=== PATIENT | male | born 1940 | race Two or more races ===

== ENCOUNTER → 2019-02-04 | Outpatient (CLI) | payer MEDICARE ==
--- NOTE | 2019-02-04 09:49 | RADIOLOGY REPORT (SQ) ---
EXAM DESCRIPTION: U/S RETROPERITON (RENAL/AORTA) COMPLETED DATE/TIME: 02/04/2019 9:09 am REASON FOR STUDY: CKD STAGE 2 N18.2 CHRONIC KIDNEY DISEASE, STAGE 2 (MILD) COMPARISON: None. TECHNIQUE: Dynamic and static grayscale images acquired of the kidneys and bladder and recorded on P ACS. Additional selected color Doppler and spectral images recorded. LIMITATIONS: 03/19/2015 FINDINGS: RIGHT KIDNEY: Normal size measuring 11.9 cm. Increased cortical echogenicity. No solid or suspicious masses. Interpolar cyst measuring up to 4.7 cm lower pole cyst measuring up to 3.1 cm. No hydronephrosis. No calcifications. LEFT KIDNEY: Normal size measuring 10.4 cm. Increased cortical echogenicity. No solid or suspicious masses. Multiple cysts, largest measuring up to 2.9 cm. No hydronephrosis. No calcifications. BLADDER: Decompressed. OTHER FINDINGS: No other significant finding. IMPRESSION: 1. No hydronephrosis. 2. Bilateral renal cysts as above. 3. Increased renal cortical echogenicity which can be seen with medical renal disease. TECHNICAL DOCUMENTATION: JOB ID: [id number] [employer]- All Rights Reserved Reading location - IP/workstation name: [email or web address]
== END ==
LOC: RAD 08:29
PROVIDERS: ATTEND Family Medicine
DX: N18.2 Chronic kidney disease, stage 2 (mild) (principal); Q61.02 Congenital multiple renal cysts
CPT/HCPCS: 76770

== ENCOUNTER 2019-06-08 00:12 | Emergency (ER) | payer MEDICARE, OTHER ==
--- NOTE | 2019-06-08 03:58 | RADIOLOGY REPORT (SQ) ---
CLINICAL HISTORY: pain/injury COMPARISON: None. 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 There is a large knee effusion. There is severe narrowing of the lateral knee compartment. Soft tissues are unremarkable. IMPRESSION: No acute osseous findings.
[2019-06-08] MEDS ORDERED: HYDROCODONE/ACETAMINOPHEN 5-325 MG (6 TAB/ER DISP) PO PRN (04:09)
[2019-06-08] MEDS ORDERED: PREDNISONE 20 MG TABLET PO ONE (04:09)
--- NOTE | 2019-06-08 04:14 | ER Document Report ---
HPI - HPI Time Seen by Provider: 06/08/19 03:57 Pain Level: 4 Context: Patient is a 79-year-old male that comes emergency department for chief complaint of 3 days of right knee pain and swelling. He states that he does have a history of gout but he usually gets it in his ankles and feet. He states that this did start after he ate meals with topical beef. He denies fever, injury. He states that he has a history of type 2 diabetes and he does have a history of chronic kidney disease. He denies any other complaints. He states he is able to walk but it is painful. - CONSTITUTIONAL Constitutional: DENIES: Fever, Chills - REPRODUCTIVE Reproductive: DENIES: : - MUSCULOSKELETAL Musculoskeletal: REPORTS: Extremity pain Past Medical History - General Information source: Patient - Social History Smoking Status: Former Smoker Chew tobacco use (# tins/day): No Frequency of alcohol use: None Drug Abuse: None Lives with: Family Family History: Reviewed & Not Pertinent Patient has suicidal ideation: No Patient has homicidal ideation: No - Past Medical History Cardiac Medical History: Reports: Hx Hypercholesterolemia Endocrine Medical History: Reports: Hx Diabetes Mellitus Type 2 - borderline Renal/ Medical History: Reports: Hx Benign Prostatic Hyperplasia Past Surgical History: Reports: Hx Cholecystectomy, Hx Urinary Tract Surgery - Prostate biopsy - Immunizations Hx Diphtheria, Pertussis, Tetanus Vaccination: Yes Vertical Provider Document - CONSTITUTIONAL General Appearance: WD/WN, No Apparent Distress - Patient moves with pain but otherwise is not in distress - INFECTION CONTROL TRAVEL OUTSIDE OF THE [place] IN LAST 30 DAYS: No - HEENT HEENT: Atraumatic, Normal ENT Exam, Normocephalic - NECK Neck: Normal Inspection - RESPIRATORY Respiratory: Breath Sounds Normal, No Respiratory Distress - CARDIOVASCULAR Cardiovascular: Regular Rate, Regular Rhythm - GI/ABDOMEN Gastrointestinal: Abdomen Soft, Abdomen Non-Tender. negative: Abdomen Tender - BACK Back: Normal Inspection - MUSCULOSKELETAL/EXTREMETIES Musculoskeletal/Extremeties: MAEW, FROM, Tender - Right anterior knee with some soft tissue swelling and warmth, questionable borderline erythema. Range of motion intact. Patient able to ambulate but with some pain. Normal distal neurovascular exam, normal leg, hip, lower extremity exam otherwise. Course - Re-evaluation Re-evalutation: X-ray is normal. Vital signs unremarkable. Patient is well-appearing but does ambulate with pain. He has normal range of motion of the right knee but the area over the anterior knee is warm, has some swelling, but there is no overt erythema. Patient does have a history of gout and overall presentation is very suggestive of gout. Based on his good range of motion and reassuring exam I have a low suspicion of septic arthritis. Discussed with patient. He reports chronic kidney disease and borderline diabetes. Decision was made to treat with prednisone, he will watch his diet, he was provided with pain medication, discussed close follow-up and return precautions. Patient states appreciation and agreement. Stable at time of discharge. - Vital Signs Vital signs: Temp Pulse Resp BP Pulse Ox 98.4 F 103 H 20 149/69 H 96 06/08/19 00:22 06/08/19 00:22 06/08/19 00:22 06/08/19 00:06/08/19 00:22 Discharge - Discharge Clinical Impression: Right knee pain Qualifiers: Chronicity: acute Qualified Code(s): M25.561 - Pain in right knee Condition: Stable Disposition: HOME, SELF-CARE Additional Instructions: Your evaluation is most consistent with an acute gout flare in your knee joint. Take the steroids as prescribed to completion, take the pain medication if needed, if you do take the pain medication also take the MiraLAX to avoid constipation. Follow-up closely with your primary care for additional management. Make sure that you reduce your sugars intake because of the steroids. Return if you worsen including severe worsening swelling or pain, fever, or any other concerning or worsening symptoms. Prescriptions: Prednisone [Deltasone 10 mg Tablet] 10 mg PO ASDIR PRN #21 tablet PRN Reason: Polyethylene Glycol 3350 [Miralax Powder 17 gm/Packet] 1 packet PO DAILY #1 pkg Oxycodone HCl/Acetaminophen [Percocet 5-325 mg Tablet] 1 - 2 tab PO TID PRN #15 tablet PRN Reason: Referrals: AZ LOPEZ MD [Primary Care Provider] - Follow up in 3-5 days
[2019-06-08 04:35] VITALS: BP 138/70
== END 2019-06-08 04:33 | disposition home or self-care (01) ==
LOC: ER 00:12
DX: M25.561 Pain in right knee (principal); M79.89 Other specified soft tissue disorders; E11.9 Type 2 diabetes mellitus without complications; Z87.891 Personal history of nicotine dependence
CPT/HCPCS: 73564; A9270 ×2; 99283; J7512